=== PATIENT | male | born 1980 | race Two or more races ===

== ENCOUNTER 2018-04-07 11:58 | Observation (INO) | payer OTHER, BC ==
[2018-04-07] MEDS ORDERED: NORMAL SALINE 1000 ML 1,000 ML IV ONE (13:49)
[2018-04-07] MEDS ORDERED: DICYCLOMINE HCL INJ 20 MG/2 ML AMPULE IM ONE (13:49)
[2018-04-07] MEDS ORDERED: ONDANSETRON 4 MG TAB.RAPDIS PO ONE ×2 (13:49→20:48)
[2018-04-07] MEDS ORDERED: FAMOTIDINE INJ/PF 20 MG/2 ML SDV IV ONE (13:49)
[2018-04-07 14:20] LABS: ABSOLUTE BASOPHILS # (AUTO) 0.1 10^3/uL (0.0-0.2); ABSOLUTE EOSINOPHILS # (AUTO) 0.2 10^3/uL (0.0-0.6); ABSOLUTE LYMPHOCYTES (AUTO) 2.7 10^3/uL (0.5-4.7); ABSOLUTE MONOCYTES (AUTO) 1.1 10^3/uL (0.1-1.4); ABSOLUTE NEUT (AUTO) 6.8 10^3/uL (1.7-8.2); BASOPHILS % (AUTO) 0.7 % (0-2); EOSINOPHILS % (AUTO) 1.8 % (0-6); HEMATOCRIT 46.1 % (37.9-51.0); HEMOGLOBIN 15.9 g/dL (13.5-17.0); MEAN CORPUSCULAR HEMOGLOBIN 27.8 pg (27.0-33.4); MEAN CORPUSCULAR HGB CONC 34.6 g/dL (32.0-36.0); MEAN CORPUSCULAR VOLUME 81 fl (80-97); MONOCYTES % (AUTO) 9.8 % (3-13); PLATELET COUNT 234 10^3/uL (150-450); RED BLOOD COUNT 5.73 10^6/uL (4.35-5.55); SEGMENTED NEUTROPHILS % (AUTO) 62.7 % (42-78); TOTAL CELLS COUNTED % (AUTO) 100 %; WHITE BLOOD COUNT 10.9 10^3/uL (4.0-10.5)
[2018-04-07 14:25] LABS: APPEARANCE,URINE SLIGHTLY-CLOUDY; BILIRUBIN,URINE NEGATIVE (NEGATIVE); COLOR,URINE YELLOW; GLUCOSE, URINE NEGATIVE (NEGATIVE); KETONES,URINE TRACE mg/dL (NEGATIVE); LEUKOCYTE ESTERASE,URINE NEGATIVE (NEGATIVE); NITRITE,URINE NEGATIVE (NEGATIVE); PROTEIN,URINE 30 mg/dL (NEGATIVE); URINE SPECIFIC GRAVITY 1.031
[2018-04-07 14:40] LABS: ALANINE AMINOTRANSFERASE 31 U/L (21-72); ALBUMIN 4.2 g/dL (3.5-5.0); ALKALINE PHOSPHATASE 129 U/L (38-126); ANION GAP 12 (5-19); ASPARTATE AMINO TRANSFERASE 20 U/L (17-59); BILIRUBIN,DIRECT 0.2 mg/dL (0.0-0.4); BILIRUBIN,TOTAL 0.5 mg/dL (0.2-1.3); BLOOD UREA NITROGEN 16 mg/dL (7-20); CALCIUM 9.5 mg/dL (8.4-10.2); CARBON DIOXIDE 28 mmol/L (22-30); CHLORIDE 105 mmol/L (98-107); GLUCOSE 80 mg/dL (75-110); LIPASE 324.3 U/L (23-300); POTASSIUM 3.9 mmol/L (3.6-5.0); SODIUM 144.7 mmol/L (137-145); TOTAL PROTEIN 7.4 g/dL (6.3-8.2)
--- NOTE | 2018-04-07 16:02 | RADIOLOGY REPORT (SQ) ---
EXAM DESCRIPTION: CT ABD/PELVIS WITH IV ONLY COMPLETED DATE/TIME: 04/07/2018 3:41 pm REASON FOR STUDY: epi ruq pain COMPARISON: None. TECHNIQUE: CT scan of the abdomen and pelvis performed using helical scanning technique with dynamic intravenous contrast injection. No oral contrast. Images reviewed with lung, soft tissue, and bone windows. Reconstructed coronal and sagittal MPR images reviewed. Delayed images for evaluation of the urinary system also acquired. All images stored on PACS. All CT scanners at this facility use dose modulation, iterative reconstruction, and/or weight based d osing when appropriate to reduce radiation dose to as low as reasonably achievable (ALARA). [facility]: Dose Right [facility]: CareDose [facility]: Dose Right [facility]: Teradose 4D [facility]: Bio[employer]ex Solutions CONTRAST TYPE AND DOSE: contrast/concentration: Isovue 370.00 mg/ml; Total Contrast Delivered: 100.0 ml; Total Saline Delivered: 45.0 ml 100 mL Isovue 370 intravenously. RENAL FUNCTION: Creatinine 0.9 RADIATION DOSE: CT Rad equipment meets quality standard of care and radiation dose reduction techniq ues were employed. CTDIvol: 14.2 - 18.9 mGy. DLP: 1827 mGy-cm.. LIMITATIONS: None. FINDINGS: LOWER CHEST: No significant findings. No nodules or infiltrates. LIVER: Normal size. No masses. No dilated ducts. SPLEEN: Normal size. No focal lesions. PANCREAS: No masses. No significant calcifications. No adjacent inflammation or peripancreatic fluid collections. Pancreatic duct not dilated. GALLBLADDER: Several stones are noted within a nondilated gallbladder. No pericholecystic fluid. ADRENAL GLANDS: No significant masses or asymmetry. RIGHT KIDNEY AND URETER: No solid masses. No significant calcifications. No hydronephrosis or hyd roureter. LEFT KIDNEY AND URETER: No solid masses. No significant calcifications. No hydronephrosis or hydr oureter. AORTA AND VESSELS: No AAA. RETROPERITONEUM: No retroperitoneal adenopathy, hemorrhage or masses. BOWEL AND PERITONEAL CAVITY: No masses or inflammatory changes. No free fluid or peritoneal masses. APPENDIX: Normal. PELVIS: No mass. No free fluid. Normal bladder. ABDOMINAL WALL: No masses. No hernias. BONES: No significant or acute findings. OTHER: No other significant finding. IMPRESSION: Cholelithiasis. COMMENT: Ultrasound may provide greater detail. TECHNICAL DOCUMENTATION: JOB ID: [id number] Quality ID # [id number]: Final reports with documentation of one or more dose reduction techniques (e.g., Au tomated exposure control, adjustment of the mA and/or kV according to patient size, use of iterative reconstruction technique) 2010 [employer]- All Rights Reserved Reading location - IP/workstation name: [email or web address]
[2018-04-07] MEDS ORDERED: RINGERS SOLUTION,LACTATED 1,000 ML IV ONE (16:38)
--- NOTE | 2018-04-07 16:39 | ER Document Report ---
ED General - General Chief Complaint: Abdominal Pain Stated Complaint: ABDOMINAL PAIN Time Seen by Provider: 04/07/18 13:48 TRAVEL OUTSIDE OF THE [place] IN LAST 30 DAYS: No - HPI Patient complains to provider of: Right upper quadrant epigastric pain Notes: Patient coming in with multiple episodes right upper quadrant epigastric pain worse today while trying to eat lunch. Patient denies any nausea vomiting fevers or chills. Patient states multiple episodes of this in the past. Patient denies any surgical history states still has his gallbladder still has appendix. Patient denies any recent travel denies any recent antibiotics. Patient otherwise resting comfortably upon my evaluation. - Related Data Allergies/Adverse Reactions: No Known Allergies Allergy (Verified 04/07/18 13:45) Past Medical History - Social History Smoking Status: Current Every Day Smoker Chew tobacco use (# tins/day): No Frequency of alcohol use: Occasional Drug Abuse: None Family History: Reviewed & Not Pertinent Patient has suicidal ideation: No Patient has homicidal ideation: No Renal/ Medical History: Denies: Hx Peritoneal Dialysis Psychiatric Medical History: Reports: Hx Depression Past Surgical History: Reports: Hx Tonsillectomy - Immunizations Hx Diphtheria, Pertussis, Tetanus Vaccination: Yes - 2009 Review of Systems - Review of Systems Constitutional: No symptoms reported EENT: No symptoms reported Cardiovascular: No symptoms reported Respiratory: No symptoms reported Gastrointestinal: Abdominal pain Genitourinary: No symptoms reported Male Genitourinary: No symptoms reported Musculoskeletal: No symptoms reported Skin: No symptoms reported Hematologic/Lymphatic: No symptoms reported Neurological/Psychological: No symptoms reported Physical Exam - Vital signs Vitals: Temp Pulse Resp BP Pulse Ox 98.0 F 65 17 141/98 H 97 04/07/18 18:57 04/07/18 18:57 04/07/18 18:57 04/07/18 18:57 04/07/18 18:57 Interpretation: Normal - General General appearance: Appears well, Alert - HEENT Head: Normocephalic, Atraumatic Eyes: Normal Pupils: PERRL - Respiratory Respiratory status: No respiratory distress Chest status: Nontender Breath sounds: Normal Chest palpation: Normal - Cardiovascular Rhythm: Regular Heart sounds: Normal auscultation Murmur: No - Abdominal Inspection: Normal Distension: No distension Bowel sounds: Normal Tenderness: Tender - Mild to moderate tenderness in the epigastric right upper quadrant region., Lu's sign Organomegaly: No organomegaly - Back Back: Normal, Nontender - Extremities General upper extremity: Normal inspection, Nontender, Normal color, Normal ROM , Normal temperature General lower extremity: Normal inspection, Nontender, Normal color, Normal ROM , Normal temperature, Normal weight bearing. No: Susana's sign - Neurological Neuro grossly intact: Yes Cognition: Normal Orientation: AAOx4 Brittni Coma Scale Eye Opening: Spontaneous Brittni Coma Scale Verbal: Oriented [place] Coma Scale Motor: Obeys Commands Brittni Coma Scale Total: 15 Speech: Normal Motor strength normal: LUE, RUE, LLE, RLE Sensory: Normal - Psychological Associated symptoms: Normal affect, Normal mood - Skin Skin Temperature: Warm Skin Moisture: Dry Skin Color: Normal Course - Re-evaluation Re-evalutation: 04/07/18 20:46 CT scan showed gallstones recommend ultrasound for further evaluation. Patient does have a slight elevation of pancreatic enzymes therefore ultrasound was obtained to look for any ductal dilatation. Ultrasound does show some gallbladder wall thickening and cholelithiasis. Reevaluation patient still have some pain still has a positive Lu sign on examination. Discussed with surgeon on-call Dr. Cummins who agrees patient will likely will need to have his gallbladder out will admit the patient to his service Zosyn will be given pain medications written as needed patient will be made n.p.o. - Vital Signs Vital signs: Temp Pulse Resp BP Pulse Ox 98.0 F 65 17 141/98 H 97 04/07/18 18:57 04/07/18 18:57 04/07/18 18:57 04/07/18 18:57 04/07/18 18:57 - Laboratory Result Diagrams: 04/07/18 13:59 04/07/18 13:59 Laboratory results interpreted by me: 04/07/18 04/07/18 04/07/18 13:59 13:59 13:59 WBC 10.9 H RBC 5.73 H Alkaline Phosphatase 129 H Lipase 324.3 H Urine Protein 30 H Urine Ketones TRACE H Urine Urobilinogen 2.0 H Discharge - Discharge Clinical Impression: Cholelithiasis and cholecystitis without obstruction Qualifiers: Cholelithiasis location: gallbladder Cholecystitis acuity: acute Qualified Code (s): K80.00 - Calculus of gallbladder with acute cholecystitis without obstruction Condition: Good Disposition: ADMITTED OBSERVATION Admitting Provider: Surgicalist - [facility] Unit Admitted: Surgical Floor Referrals: MANAN JACQUES MD [Primary Care Provider] - Follow up as needed
[2018-04-07] MEDS ORDERED: MORPHINE SULFATE 10 MG/ML INJ IV ONE (17:51)
--- NOTE | 2018-04-07 18:12 | RADIOLOGY REPORT (SQ) ---
EXAM DESCRIPTION: U/S ABDOMEN LIMITED W/O DOP COMPLETED DATE/TIME: 04/07/2018 5:34 pm REASON FOR STUDY: ruq pain follow up ct scan COMPARISON: CT stain date. Cholelithiasis. TECHNIQUE: Dynamic and static grayscale images acquired of the liver and recorded on PACS. Addition al selected color Doppler and spectral images recorded. Selected velocities recorded. LIMITATIONS: None. FINDINGS: LIVER: The nothing acute LIVER VASCULATURE: Proper hepatopetal flow portal vein. GALLBLADDER: Multiple stones seen within the gallbladder. Slightly thickened gallbladder wall. No p ericholecystic fluid. Nuclear medicine hepatobiliary scan may be helpful in further evaluation of po ssible cholecystitis. INTRAHEPATIC DUCTS AND COMMON DUCT: No dilated intrahepatic ducts. CBD diameter normal. ASCITES: None. OTHER: No hydronephrosis right kidney. IMPRESSION: Cholelithiasis. Prominent gallbladder wall. No pericholecystic fluid. No dilatation common bile duct. TECHNICAL DOCUMENTATION: JOB ID: [id number] Reading location - IP/workstation name: [email or web address]
[2018-04-07] MEDS ORDERED: PIPERACILLIN/TAZOBACTAM 4.5 GM VIAL IV ONE (20:48)
[2018-04-07] MEDS: MORPHINE SULFATE 10 MG/ML INJ IV SCH (22:07)
--- NOTE | 2018-04-08 00:15 | PDOC H&P ---
History of Present Illness Admission Date/PCP: 04/07/18 21:00 MANAN JACQUES MD Patient complains of: Right upper quadrant pain that is constant History of Present Illness: YNES OBREGON is a 37 year old male with sharp, stabbing right upper quadrant pain that began earlier today. The patient has had similar episodes in the past, however they have always resolved spontaneously. Today, the patient's pain has become unrelenting and severe. His pain radiates to the right scapula. The pain began after eating today. Nothing makes his pain better, palpation makes it worse. The patient denies chest pain, shortness of breath, fevers, chills. He has had nausea and vomiting. Patient was found to have gallstones and wall thickening on ultrasound. Past Medical History Cardiac Medical History: Reports: Hypertension Psychiatric Medical History: Reports: Depression Past Surgical History Past Surgical History: Reports: Tonsillectomy Social History Smoking Status: Never Smoker Frequency of Alcohol Use: Occasional Family History Family History: Reviewed & Not Pertinent Parental Family History Reviewed: Yes Children Family History Reviewed: Yes Sibling(s) Family History Reviewed.: Yes Medication/Allergy Home Medications: Ibuprofen [Motrin 800 Mg Tablet] 800 mg PO Q8H PRN 10/13/11 Sertraline HCl [Zoloft 50 Mg Tablet] 50 mg PO DAILY #7 tablet 07/01/13 Allergies/Adverse Reactions: No Known Allergies Allergy (Verified 04/07/18 13:45) Review of Systems Constitutional: ABSENT: chills, fatigue, fever(s) Eyes: ABSENT: visual disturbances Ears: ABSENT: hearing changes Nose, Mouth, and Throat: ABSENT: sore throat Cardiovascular: ABSENT: chest pain, palpitations Respiratory: ABSENT: cough, dyspnea Gastrointestinal: PRESENT: abdominal pain, bloating, nausea, vomiting Genitourinary: ABSENT: dysuria Integumentary: ABSENT: pruritus, rash Neurological: ABSENT: confusion, convulsions, dizziness Psychiatric: ABSENT: anxiety, depression, hallucinations Endocrine: ABSENT: cold intolerance, heat intolerance Hematologic/Lymphatic: ABSENT: easy bleeding, easy bruising Physical Exam Vital Signs: Temp Pulse Resp BP Pulse Ox 98.0 F 65 17 141/98 H 97 04/07/18 18:57 04/07/18 18:57 04/07/18 18:57 04/07/18 18:57 04/07/18 18:57 General appearance: PRESENT: mild distress - Abdominal Head exam: PRESENT: atraumatic, normocephalic Eye exam: PRESENT: EOMI, PERRLA. ABSENT: scleral icterus Mouth exam: PRESENT: neck supple Neck exam: ABSENT: lymphadenopathy, meningismus, tenderness, thyromegaly, tracheal deviation Respiratory exam: PRESENT: clear to auscultation donal, unlabored. ABSENT: chest wall tenderness, rales, rhonchi, tachypnea Cardiovascular exam: PRESENT: RRR Pulses: PRESENT: normal radial pulses Vascular exam: PRESENT: normal capillary refill. ABSENT: pallor GI/Abdominal exam: PRESENT: guarding, Lu's sign, soft, tenderness Extremities exam: ABSENT: tenderness Musculoskeletal exam: PRESENT: normal inspection Neurological exam: PRESENT: alert, awake, oriented to person, oriented to place , oriented to time, oriented to situation, CN II-XII grossly intact. ABSENT: motor sensory deficit Psychiatric exam: ABSENT: agitated, anxious, depressed Skin exam: ABSENT: cyanosis, erythema, jaundice, pallor Results Impressions: Abdomen/Pelvis CT 04/07/18 13:48 IMPRESSION: Cholelithiasis. Abdomen Ultrasound 04/07/18 16:05 IMPRESSION: Cholelithiasis. Prominent gallbladder wall. No pericholecystic fluid. No dilatation common bile duct. Assessment & Plan - Diagnosis (1) Cholelithiasis and cholecystitis without obstruction Qualifiers: Cholelithiasis location: gallbladder Cholecystitis acuity: acute Qualified Code(s): K80.00 - Calculus of gallbladder with acute cholecystitis without obstruction Is this a current diagnosis for this admission?: Yes - Plan Summary Plan Summary: This is a 37-year-old male with right upper quadrant pain, gallbladder wall thickening, and gallstones. I believe the patient is experiencing cholecystitis. I will admit the patient, start him on antibiotics, and plan for surgical intervention tomorrow. This is been discussed with the patient, and he is in agreement with the treatment plan. Risks/benefits discussed, informed consent obtained, and all questions answered.
[2018-04-08] MEDS ORDERED: GLUCAGON,HUMAN RECOMB 1 MG INJ SUBCUT PRN (00:16)
[2018-04-08] MEDS ORDERED: DEXTROSE 50%-WATER 25 GM/50 ML DISP.SYRIN IV PRN ×2 (00:16)
[2018-04-08] MEDS ORDERED: DEXTROSE 40% GEL 15 GM TUBE PO PRN ×2 (00:16)
[2018-04-08] MEDS ORDERED: MORPHINE SULFATE 10 MG/ML INJ IV PRN ×3 (00:16→15:16)
[2018-04-08] MEDS ORDERED: ONDANSETRON HCL INJ/PF 4 MG/2 ML SDV IV PRN (00:16)
[2018-04-08] MEDS ORDERED: PIPERACILLIN/TAZOBACTAM 3.375 GM VIAL IV PRN (00:31)
[2018-04-08] MEDS: PIPERACILLIN SODIUM/TAZOBACTAM 3.375 GM in NORMAL SALINE 100 ML IV SCH ×5 (02:39→21:41)
[2018-04-08] MEDS: DEXTROSE 5%-LACTATED RINGERS 1,000 ML IV PRN ×2 (02:42→09:31)
[2018-04-08] MEDS: MORPHINE SULFATE 10 MG/ML INJ IV SCH ×3 (03:02→10:22)
--- NOTE | 2018-04-08 12:51 | PDOC PROGRESS REPORT ---
Subjective Progress Note for:: 04/08/18 Subjective:: Right upper quadrant abdominal pain. That has been present since yesterday. Prior episodes of this pain. No alcohol abuse history. No diffuse abdominal pain Reason For Visit: ACUTE CHOLECYSTITIS Physical Exam Vital Signs: Temp Pulse Resp BP Pulse Ox 98.1 F 78 16 130/88 H 94 04/08/18 12:19 04/08/18 12:19 04/08/18 12:19 04/08/18 12:19 04/08/18 12:19 General appearance: PRESENT: no acute distress, cooperative Respiratory exam: PRESENT: clear to auscultation donal Cardiovascular exam: PRESENT: RRR GI/Abdominal exam: PRESENT: other - Soft, mildly distended, focal tenderness to palpation the right upper quadrant with guarding. Minimal epigastric tenderness Results Impressions: Abdomen/Pelvis CT 04/07/18 13:48 IMPRESSION: Cholelithiasis. Abdomen Ultrasound 04/07/18 16:05 IMPRESSION: Cholelithiasis. Prominent gallbladder wall. No pericholecystic fluid. No dilatation common bile duct. Assessment & Plan - Diagnosis (1) Cholelithiasis and cholecystitis without obstruction Qualifiers: Cholelithiasis location: gallbladder Cholecystitis acuity: acute Qualified Code(s): K80.00 - Calculus of gallbladder with acute cholecystitis without obstruction Is this a current diagnosis for this admission?: Yes Plan: Although his lipase is slightly elevated I do not think he has gallstone pancreatitis. His history and exam and ultrasound all consistent with acute cholecystitis. I will plan laparoscopic cholecystectomy possible open cholecystectomy. I have discussed with patient the risk and benefits of the procedure including risk of bile duct injury, intestinal injury, infection, bleeding, mistaken diagnosis. If he does have dilated cystic duct then I will plan an intraoperative cholangiogram. Patient understands and agrees to proceed.
[2018-04-08] MEDS ORDERED: BUPIVACAINE HCL 0.25 % INJ/PF (2.5 MG/1 ML) 30 ML VIAL ONE (12:52)
[2018-04-08] MEDS ORDERED: MIDAZOLAM 2 MG/2 ML INJ ONE (13:01)
[2018-04-08] MEDS ORDERED: EPHEDRINE SULFATE INJ 50 MG/1 ML AMPULE ONE (13:01)
[2018-04-08] MEDS ORDERED: FENTANYL CITRATE INJ/PF 100 MCG/2 ML AMPUL ONE ×2 (13:01)
[2018-04-08] MEDS ORDERED: PROPOFOL INJ 200 MG/20 ML VIAL IV ONE (13:02)
[2018-04-08] MEDS ORDERED: MORPHINE SULFATE 10 MG/ML INJ ONE (13:02)
[2018-04-08] MEDS ORDERED: ACETAMINOPHEN 1,000 MG/100 ML RTUPB IV ONE (13:03)
[2018-04-08] MEDS ORDERED: FENTANYL CITRATE INJ/PF 100 MCG/2 ML AMPUL IV PRN ×3 (14:11)
[2018-04-08] MEDS ORDERED: PROMETHAZINE HCL INJ 25 MG/1 ML VIAL IV PRN (14:11)
[2018-04-08] MEDS ORDERED: DIPHENHYDRAMINE HCL 50 MG/ML VIAL IV PRN (14:11)
--- NOTE | 2018-04-08 15:16 | Operative Report ---
Operative Report DATE OF SURGERY: 04/08/18 PREOPERATIVE DIAGNOSIS: Acute cholecystitis POSTOPERATIVE DIAGNOSIS: Acute cholecystitis OPERATION: Laparoscopic cholecystectomy SURGEON: CARROLL ESPINO ANESTHESIA: GA TISSUE REMOVED OR ALTERED: Gallbladder, gallbladder fluid submitted for Gram stain and culture COMPLICATIONS: None ESTIMATED BLOOD LOSS: 40 cc INTRAOPERATIVE FINDINGS: Markedly thickened inflamed gallbladder filled with thick turbid fluid PROCEDURE: Informed consent was obtained. Patient was brought to the operating room placed operating table in supine position. After satisfactory induction of general anesthesia, patient's abdomen was prepped and draped in usual sterile fashion. A supraumbilical midline incision was made and dissection carried down to the fascia the peritoneal cavity entered without difficulty. Fried trocar was inserted. Pneumoperitoneum produced good patient toleration. 5 mm trocar was placed in the subxiphoid location.Two 5 mm trochars were placed in the right subcostal location. The gallbladder was markedly distended and its wall thickened. Attempted gallbladder aspiration was performed with an aspiration needle but the contents were too thick to aspirate. There was very thick turbid fluid in the gallbladder. The gallbladder was grasped and retracted cephalad over the dome of the liver. The infundibulum of the gallbladder was grasped retracted laterally and inferiorly thus exposing calot' s triangle. The cystic duct gallbladder junction was clearly identified and the cystic duct was clipped and divided. Cystic artery was likewise taken. The gallbladder was taken off the gallbladder bed using the hook electrocautery technique. Due to the marked inflammation of the gallbladder wall the procedure was difficult. Other than the aspiration holes, the gallbladder was removed intact. The gallbladder was removed with an Endobag through the Fried trocar site fascial defect. Hemostasis appeared excellent. The operative field was copiously irrigated and irrigation fluid aspirated out. Irrigation fluid was perfectly clear at the end of the case. All trochars were removed under the direct vision a laparoscope to ensure hemostasis. There was bleeding from the 2 right subcostal trochars which were controlled with electrocautery. Hemostasis appeared good at the end. The Fried trocar site fascial defect was closed with interrupted Vicryl sutures. All skin incisions were closed with subcuticular interrupted Monocryl sutures. Marcaine was injected at the port sites. Patient tolerated procedure well no apparent complications and was taken to the recovery area in stable condition.
[2018-04-08] MEDS ORDERED: NEOSTIGMINE METHYLSULFATE 10 MG/10 ML VIAL ONE (16:56)
[2018-04-08] MEDS ORDERED: ROCURONIUM BROMIDE INJ 50 MG/5 ML VIAL IV ONE (16:56)
[2018-04-08] MEDS ORDERED: GLYCOPYRROLATE 1 MG/5 ML SYRINGE ONE (16:56)
[2018-04-08] MEDS ORDERED: SUCCINYLCHOLINE CHLORIDE INJ 200 MG/10 ML VIAL ONE (16:56)
[2018-04-08] MEDS ORDERED: ONDANSETRON HCL INJ/PF 4 MG/2 ML SDV ONE (16:56)
[2018-04-08] MEDS ORDERED: DEXAMETHASONE SOD PHOSPHATE INJ 4 MG/1 ML VIAL ONE (16:56)
[2018-04-08] MEDS ORDERED: LIDOCAINE 2% INJ-PF (20 MG/ML) 2 ML AMPUL ONE (16:56)
[2018-04-08] MEDS ORDERED: SERTRALINE HCL 50 MG TABLET PO SCH (22:00)
--- NOTE | 2018-04-08 22:44 | PDOC PROGRESS REPORT ---
Subjective Progress Note for:: 04/08/18 Subjective:: Feels much better since the operation. Hungry. Minimal abdominal pain. Reason For Visit: ACUTE CHOLECYSTITIS Physical Exam Vital Signs: Temp Pulse Resp BP Pulse Ox 98.5 F 90 16 132/85 H 93 04/08/18 20:00 04/08/18 20:00 04/08/18 20:00 04/08/18 20:00 04/08/18 20:00 Intake & Output 04/07/18 04/08/18 04/09/18 06:59 06:59 06:59 Intake Total 2520 Output Total 1540 Balance 980 General appearance: PRESENT: no acute distress, cooperative Respiratory exam: PRESENT: clear to auscultation donal Cardiovascular exam: PRESENT: RRR GI/Abdominal exam: PRESENT: other - Soft, nondistended, minimal tenderness. Neurological exam: PRESENT: alert, awake Psychiatric exam: PRESENT: appropriate affect Results Impressions: Abdomen/Pelvis CT 04/07/18 13:48 IMPRESSION: Cholelithiasis. Abdomen Ultrasound 04/07/18 16:05 IMPRESSION: Cholelithiasis. Prominent gallbladder wall. No pericholecystic fluid. No dilatation common bile duct. Assessment & Plan - Diagnosis (1) Cholelithiasis and cholecystitis without obstruction Qualifiers: Cholelithiasis location: gallbladder Cholecystitis acuity: acute Qualified Code(s): K80.00 - Calculus of gallbladder with acute cholecystitis without obstruction Is this a current diagnosis for this admission?: Yes Plan: Status post laparoscopic cholecystectomy. Patient looks very good. Will start clear liquids. Probable discharge home in the morning.
[2018-04-09] MEDS: PIPERACILLIN SODIUM/TAZOBACTAM 3.375 GM in NORMAL SALINE 100 ML IV SCH ×2 (02:00→09:50)
[2018-04-09 07:14] LABS: ABSOLUTE LYMPHOCYTES (AUTO) 1.9 10^3/uL (0.5-4.7); ABSOLUTE MONOCYTES (AUTO) 0.9 10^3/uL (0.1-1.4); ABSOLUTE NEUT (AUTO) 7.9 10^3/uL (1.7-8.2); BASOPHILS % (AUTO) 0.3 % (0-2); EOSINOPHILS % (AUTO) 0.3 % (0-6); HEMATOCRIT 41.4 % (37.9-51.0); HEMOGLOBIN 14.4 g/dL (13.5-17.0); LYMPHOCYTES % (AUTO) 17.6 % (13-45); MEAN CORPUSCULAR HEMOGLOBIN 28.2 pg (27.0-33.4); MEAN CORPUSCULAR HGB CONC 34.7 g/dL (32.0-36.0); MEAN CORPUSCULAR VOLUME 81 fl (80-97); MONOCYTES % (AUTO) 8.5 % (3-13); PLATELET COUNT 213 10^3/uL (150-450); RED BLOOD COUNT 5.09 10^6/uL (4.35-5.55); RED CELL DISTRIBUTION WIDTH 13.8 % (11.5-14.0); SEGMENTED NEUTROPHILS % (AUTO) 73.3 % (42-78); TOTAL CELLS COUNTED % (AUTO) 100 %; WHITE BLOOD COUNT 10.8 10^3/uL (4.0-10.5)
[2018-04-09 07:42] LABS: ALANINE AMINOTRANSFERASE 53 U/L (21-72); ALBUMIN 3.5 g/dL (3.5-5.0); ALKALINE PHOSPHATASE 107 U/L (38-126); ANION GAP 11 (5-19); ASPARTATE AMINO TRANSFERASE 51 U/L (17-59); BILIRUBIN,DIRECT 0.3 mg/dL (0.0-0.4); BILIRUBIN,TOTAL 0.7 mg/dL (0.2-1.3); BLOOD UREA NITROGEN 11 mg/dL (7-20); CALCIUM 9.2 mg/dL (8.4-10.2); CARBON DIOXIDE 28 mmol/L (22-30); CHLORIDE 106 mmol/L (98-107); GLUCOSE 89 mg/dL (75-110); LIPASE 102.1 U/L (23-300); POTASSIUM 4.1 mmol/L (3.6-5.0); SODIUM 145.3 mmol/L (137-145); TOTAL PROTEIN 6.4 g/dL (6.3-8.2)
[2018-04-09 14:39] VITALS: BP 118/72
--- NOTE | 2018-04-10 15:35 | DISCHARGE SUMMARY E ---
Discharge Summary NAME: YNES OBREGON : 1980 AGE: 37Y ADMITTED: 04/07/2018 DISCHARGED: 04/09/2018 FINAL DIAGNOSES: 1. Acute cholecystitis and cholelithiasis. 2. Status post laparoscopic cholecystectomy, Dr. Braswell. REASON FOR ADMISSION: Acute cholecystitis. SUMMARY OF HOSPITALIZATION: The patient is a 37-year-old white male who presents to the emergency department complaining of acute onset abdominal pain. He was evaluated by a CT scan of the abdomen and found to have evidence of acute cholecystitis with cholelithiasis. He was taken to the operating room by Dr. Sammy Braswell on 04/08/2018 where he underwent laparoscopic cholecystectomy. He tolerated the procedure well. There were no postprocedure complications. By the following day he was tolerating a diet, moving his bowels, and having no problems with pain management. DISPOSITION: The patient is discharged home to the care of his family. Follow up with [facility] in approximately 1-2 weeks. Take Tylenol or Motrin p.r.n. pain; out of heavy lifting, not provided to patient. DICTATING PHYSICIAN: NIKOLAS LAFLEUR M.D. [id number] PHY#: [id number] ID: [id number] JOB#: [id number] ACCT: [id number] cc:NIKOLAS LAFLEUR M.D. >
== END 2018-04-09 15:09 | disposition home or self-care (01) ==
LOC: ER 11:58 → EH 21:00 → 4N 04-08 17:01
PROVIDERS: ATTEND Surgery
PROC: 0FT44ZZ Resection of Gallbladder, Percutaneous Endoscopic Approach (ICD-10-PCS; principal; 2018-04-08 13:30)
DX: K80.10 Calculus of gallbladder with chronic cholecystitis without obstruction (principal); F17.200 Nicotine dependence, unspecified, uncomplicated
CPT/HCPCS: 96376; 99285; 96372; 96361; 96375; 96365; 96366; 36415 ×2; 87205; 87070; 83690 ×2; 85025 ×2; 87075; 80053 ×2; 81001; 88304 ×2; 76705; 74177; 47562; G0378 ×3; J2250; J3490 ×3; J1100; J0500; S0119; J3010; J2270 ×2; J0330; J2405; J7030; J7120; J2704; S0028; J2543 ×3; J0131; 790